=== PATIENT | female | born 1970 | race Caucasian/White ===

== ENCOUNTER 2017-07-22 00:01 | Emergency (ER) | payer MEDICAID ==
[~2017-07-22] VITALS: Ht 167.6 cm; Wt 93.4 kg
[2017-07-22 00:01] VITALS: BP_SYST 162
[2017-07-22 01:24] VITALS: BP_SYST 154
== END 2017-07-22 01:24 | disposition home or self-care (01) ==
LOC: SED 00:01
DX: S20.212A Contusion of left front wall of thorax, initial encounter (principal); S30.1XXA Contusion of abdominal wall, initial encounter; I10 Essential (primary) hypertension; Z98.51 Tubal ligation status; V43.52XA Car driver injured in collision with other type car in traffic accident, initial encounter; Y93.89 Activity, other specified; Y92.410 Unspecified street and highway as the place of occurrence of the external cause; Y99.8 Other external cause status
CPT/HCPCS: 71045; 99283

== ENCOUNTER 2021-09-21 20:28 | Emergency (ER) | payer MEDICAID ==
[~2021-09-21] VITALS: Ht 167.6 cm; Wt 88.9 kg
[2021-09-21 20:46] VITALS: BP_SYST 179
--- NOTE | 2021-09-21 21:17 | NUR ---
Patient to ER bed H1 to gown for evaluation. Side rails up.
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
--- NOTE | 2021-09-21 21:59 | NUR ---
ER Dr. Biswas[] at bedside examining patient.
[2021-09-21] MEDS ORDERED: KETOROLAC TROMETHAMINE 60 MG/2 ML VIAL IM ONE (22:30)
[2021-09-21] MEDS ORDERED: NAPR-690 PO (22:36)
--- NOTE | 2021-09-21 22:47 | NUR ---
Jasen wrap applied to left knee.Pt tolerated well.
--- NOTE | 2021-09-21 22:47 | NUR ---
Patient given written and verbal discharge instructions and verbalizes understanding. ER MD discussed with patient the results and treatment provided. Patient in stable condition. ID arm band removed. Rx of Naproxen given. Patient educated on pain management and to follow up with PMD. Pain Scale 3/10. Opportunity for questions provided and answered. Medication side effect fact sheet provided.
[2021-09-21 22:48] VITALS: BP_SYST 159
== END 2021-09-21 22:48 | disposition home or self-care (01) ==
LOC: SED 20:28
DX: S83.92XA Sprain of unspecified site of left knee, initial encounter (principal); I10 Essential (primary) hypertension; V03.10XA Pedestrian on foot injured in collision with car, pick-up truck or van in traffic accident, initial encounter; Y93.89 Activity, other specified; Y92.89 Other specified places as the place of occurrence of the external cause; Y99.8 Other external cause status
CPT/HCPCS: 73564; 96372; 99283; J1885